=== PATIENT | male | born 1990 | race American Indian/Alaskan Native ===

== ENCOUNTER 2019-09-04 08:39 | Emergency (ER) | payer OTHER ==
[2019-09-04 08:44] VITALS: BP 141/91
[2019-09-04] MEDS ORDERED: KETOROLAC 30 MG/1 ML INJ IM ONE (10:36)
--- NOTE | 2019-09-04 10:42 | Emergency Department Report ---
ED Back Pain/Injury HPI - General Chief Complaint: Back Pain/Injury Stated Complaint: BACK PAIN EXTREME Time Seen by Provider: 09/04/19 09:26 Source: patient Limitations: No Limitations - History of Present Illness Initial Comments: This is a 29-year-old healthy looking male who presents to ED complaining of lower back pain that started 2 days ago. Patient complains of left-sided lower back pain that worsened 2 days ago. Patient states he has a history of a fall about 3 months ago. Patient states that he had some injuries to his back and was seen by her orthopedic doctor after incident. Patient denies any new injury or falls or trauma in the past week. He denies dysuria, difficulty walking or loss of sensation to the back or legs. He denies any radiation of pain e lsewhere. Complaint: back pain Place: home Severity: mild Severity scale (0 -10): 4 Quality: aching Consistency: intermittent Worsens With: movement Context: fall Associated Symptoms: denies: confusion, weakness, numbness, difficulty walking - Related Data Previous Rx's Medication Instructions Recorded Last Taken Type Cyclobenzaprine [Flexeril] 10 mg PO QHS PRN #20 tablet 09/04/[address] [Voltaren Dr] 50 mg PO BID #30 tablet 09/04/19 Unknown Rx Allergies Allergy/AdvReac Type Severity Reaction Status Date / Time No Known Allergies Allergy Unverified 09/04/19 08:40 ED Review of Systems ROS: Stated complaint: BACK PAIN EXTREME Other details as noted in HPI Comment: All other systems reviewed and negative ED Past Medical Hx - Past Medical History BACK INJURY ED Back Pain Physical Exam - Exam General: Vital signs noted. No distress. Alert and acting appropriately. Tenderness of the latissimus dorsi muscle of the left upon palpation. No cervical and thoracolumbar spinal tenderness Back/Abdomen: No Abdominal Tenderness, No Perithoracic Tenderness, No Perilumbar Tenderness, No Sacroiliac Tenderness, No Flank Tenderness, No Straight Leg Raise Pain Neuro: Yes Normal Sensation, Yes Normal DTR's, Yes Normal Gait, No Motor Weakness ED Course Vital Signs 09/04/19 08:40 Temperature 97.9 F Pulse Rate 69 Respiratory 18 Rate Blood Pressure 141/91 O2 Sat by Pulse 98 Oximetry ED Medical Decision Making - Medical Decision Making 29-year-old female presents to ED with low back muscle strain/acute on chronic back pain from fall 3 Months ago ED course: Patient received Toradol in ED. Vital signs are normal patient is in no acute distress Discussed with patient follow-up with primary care physician. Discussed the patient and take medications as prescribed. Patient has no neurological deficit. Patient is alert and oriented 3 and understands all instructions given. Discussed drowsiness effect of Flexeril makes her drowsy and not to operate machinery while taking flexeril Critical care attestation.: If time is entered above; I have spent that time in minutes in the direct care of this critically ill patient, excluding procedure time. ED Disposition Clinical Impression: Low back pain, Back pain due to injury Disposition: - TO HOME OR SELFCARE Is pt being admited?: No Does the pt Need Aspirin: No Condition: Stable Instructions: Acute Low Back Pain (ED), Low Back Strain (ED) Additional Instructions: Make sure to follow up with the primary care physician as discussed. Take all your medications as you've been prescribed. If you have any worsening symptoms or develop new symptoms please return to ED immediately. Prescriptions: Cyclobenzaprine [Flexeril] 10 mg PO QHS PRN #20 tablet PRN Reason: Muscle Spasm Diclofenac [Perez Leger] 50 mg PO BID #30 tablet Referrals: [facility] [Outside] - 3-5 Days [facility] [Outside] - 3-[address] [facility] [Provider Group] - 3-5 Days Forms: Work/School Release Form(ED) Time of Disposition: 11:17
== END 2019-09-04 11:49 | disposition home or self-care (01) ==
LOC: ED 08:39
DX: S39.012A Strain of muscle, fascia and tendon of lower back, initial encounter (principal); G89.29 Other chronic pain; W01.198A Fall on same level from slipping, tripping and stumbling with subsequent striking against other object, initial encounter; Y93.89 Activity, other specified; Y92.89 Other specified places as the place of occurrence of the external cause; Y99.8 Other external cause status
CPT/HCPCS: 96372; 99282; J1885